=== PATIENT | female | born 1965 | race Caucasian/White ===

== ENCOUNTER 2016-09-13 05:43 | Inpatient (IN) | payer BC ==
[~2016-09-13] VITALS: Ht 162.6 cm; Wt 74.8 kg
[2016-09-13 07:43] LABS: HEMOGLOBIN 14.4 gm/dl (12.3-15.3); RED BLOOD COUNT 4.8 M/UL (4.00-5.10); WHITE BLOOD COUNT 13.1 K/UL (4.5-11.0)
[2016-09-13 08:01] LABS: BUN/CREATININE RATIO 21 (0-10)
[2016-09-13] MEDS ORDERED: NO HOME MEDS (15:02)
[2016-09-14 06:05] LABS: HEMOGLOBIN 12.6 gm/dl (12.3-15.3); WHITE BLOOD COUNT 12.1 K/UL (4.5-11.0)
[2016-09-14 06:07] LABS: RED BLOOD COUNT 4.19 M/UL (4.00-5.10)
[2016-09-14 06:32] LABS: BUN/CREATININE RATIO 14 (0-10)
[2016-09-15 13:57] LABS: RED BLOOD COUNT 4.01 M/UL (4.00-5.10); WHITE BLOOD COUNT 13.8 K/UL (4.5-11.0)
[2016-09-15 14:18] LABS: BUN/CREATININE RATIO 8 (0-10)
[2016-09-16 04:56] LABS: HEMOGLOBIN 12.4 gm/dl (12.3-15.3); RED BLOOD COUNT 4.16 M/UL (4.00-5.10); WHITE BLOOD COUNT 14.4 K/UL (4.5-11.0)
[2016-09-16 05:13] LABS: BUN/CREATININE RATIO 6 (0-10)
[2016-09-17 06:53] LABS: HEMOGLOBIN 11.1 gm/dl (12.3-15.3); WHITE BLOOD COUNT 11.5 K/UL (4.5-11.0)
[2016-09-17 06:54] LABS: RED BLOOD COUNT 3.73 M/UL (4.00-5.10)
[2016-09-17 07:07] LABS: BUN/CREATININE RATIO 8 (0-10)
[2016-09-18 05:50] LABS: RED BLOOD COUNT 4.03 M/UL (4.00-5.10); WHITE BLOOD COUNT 11.8 K/UL (4.5-11.0)
[2016-09-18 06:11] LABS: BUN/CREATININE RATIO 8 (0-10)
[2016-09-19 04:42] LABS: RED BLOOD COUNT 4.37 M/UL (4.00-5.10)
[2016-09-19 05:04] LABS: BUN/CREATININE RATIO 8 (0-10)
[2016-09-20 06:00] LABS: RED BLOOD COUNT 4.72 M/UL (4.00-5.10)
[2016-09-20 06:14] LABS: BUN/CREATININE RATIO 12 (0-10)
== END 2016-09-21 13:26 | disposition home or self-care (01) | DRG 439 ==
LOC: ER1 05:43 → MED SURG 4 12:25 → ZEROF 12:25 → MED SURG 4 13:32
PROVIDERS: Internal Medicine; Internal Medicine Infectious Disease; Physician Assistant; ADMIT Hospitalist
DX: K85.90 Acute pancreatitis without necrosis or infection, unspecified (principal); J98.11 Atelectasis; J44.1 Chronic obstructive pulmonary disease with (acute) exacerbation; R73.9 Hyperglycemia, unspecified; K29.80 Duodenitis without bleeding; E87.6 Hypokalemia; K57.90 Diverticulosis of intestine, part unspecified, without perforation or abscess without bleeding; Z84.89 Family history of other specified conditions
CPT/HCPCS: 36415; 76705; 80048; 80053; 80061; 81001; 82150; 82962; 83036; 83690; 83735; 84484; 84703; 85025; 85027; 87040; 87086; 87205; 93005; 96361; 96365; 96375; 96376; 99285; C9113; J2270; J2405; J2543; J7030; J7050; Q9962

== ENCOUNTER 2020-10-23 03:30 | Inpatient (IN) | payer BC ==
[~2020-10-23] VITALS: Ht 162.6 cm; Wt 81.6 kg
[~2020-10-23 03:30] MED LIST: NO HOME MEDS; NORCO 5-325 TA1 EACH PO; PHENERGAN 25 MG25 M1 PO; TORADOL 10 MG T10 MG PO; ULTRAM50 MG PO; VALTREX1000 MG PO; ZOFRAN ODT 4 MG4 MG PO
[2020-10-23 03:53] LABS: HEMOGLOBIN 14.8 gm/dl (12.3-15.3); RED BLOOD COUNT 4.76 M/UL (4.00-5.10); WHITE BLOOD COUNT 9.5 K/UL (4.5-11.0)
[2020-10-23 04:27] LABS: BUN/CREATININE RATIO 25 (0-10)
[2020-10-24 04:28] LABS: WHITE BLOOD COUNT 8.7 K/UL (4.5-11.0)
[2020-10-24 04:33] LABS: HEMOGLOBIN 12.6 gm/dl (12.3-15.3); RED BLOOD COUNT 4.25 M/UL (4.00-5.10)
[2020-10-24 05:08] LABS: BUN/CREATININE RATIO 23 (0-10)
== END 2020-10-25 13:00 | disposition home or self-care (01) | DRG 440 ==
LOC: ER1 03:30 → MED SURG 4 05:47 → CDU 05:47 → MED SURG 4 08:36
PROVIDERS: Family Medicine; Internal Medicine; ADMIT Family Medicine
DX: K85.80 Other acute pancreatitis without necrosis or infection (principal); Z20.822 Contact with and (suspected) exposure to COVID-19; Z90.49 Acquired absence of other specified parts of digestive tract; Z83.6 Family history of other diseases of the respiratory system; Z98.890 Other specified postprocedural states
CPT/HCPCS: 36415; 80053; 80307; 81001; 82550; 82553; 83690; 83874; 84478; 84484; 85025; 93005; 96374; 96375; 96376; 99285; C9113; J1170; J1650; J2270; J2405; J3480; Q9967; U0002

== ENCOUNTER 2021-02-05 01:30 | Inpatient (IN) | payer BC ==
[~2021-02-05] VITALS: Ht 162.6 cm; Wt 81.6 kg
[2021-02-05 01:52] LABS: HEMOGLOBIN 14.3 gm/dl (12.3-15.3); RED BLOOD COUNT 4.71 M/UL (4.00-5.10)
[2021-02-05 02:26] LABS: BUN/CREATININE RATIO 23 (0-10)
[2021-02-06 07:19] LABS: WHITE BLOOD COUNT 5.6 K/UL (4.5-11.0)
[2021-02-06 07:20] LABS: RED BLOOD COUNT 4.11 M/UL (4.00-5.10)
[2021-02-06 07:50] LABS: BUN/CREATININE RATIO 17 (0-10)
[2021-02-06] MEDS ORDERED: PROTONIX 40 MG40 M1 PO (12:31)
[2021-02-06] MEDS ORDERED: ZOFRAN4 MG PO (12:31)
[2021-02-06] MEDS ORDERED: GAS RELIEF80 MG PO (12:31)
[2021-02-06] MEDS ORDERED: HYDROCODON-ACE1 EAC4 PO (12:34)
== END 2021-02-06 14:13 | disposition home or self-care (01) | DRG 440 ==
LOC: ER1 01:30 → CDU 04:28 → M/S 14:34
PROVIDERS: Physician Assistant; ADMIT Internal Medicine
DX: K85.80 Other acute pancreatitis without necrosis or infection (principal); K21.9 Gastro-esophageal reflux disease without esophagitis; Z20.822 Contact with and (suspected) exposure to COVID-19; R91.1 Solitary pulmonary nodule; Z90.49 Acquired absence of other specified parts of digestive tract; Z98.890 Other specified postprocedural states
CPT/HCPCS: 36415; 71045; 80053; 80061; 82550; 82553; 83690; 83874; 83880; 84484; 85025; 93005; 96374; 99285; C9113; J1170; J1650; J2270; J2405; J7030; Q9967; U0002